=== PATIENT | male | born 1985 | race African-American/Black ===

== ENCOUNTER 2017-08-14 18:26 | Emergency (ER) | payer BC ==
[2017-08-14] MEDS ORDERED: DEXAMETHASONE SOD PHOS INJ 10 MG/1 ML VIAL IM ONE (19:18)
--- NOTE | 2017-08-14 20:00 | ER Document Report ---
ED General - General Chief Complaint: Jaw Pain Stated Complaint: RIGHT SIDE OF FACE PAIN Time Seen by Provider: 08/14/17 18:58 Mode of Arrival: Ambulatory Information source: Patient, Relative Notes: Patient is a 31-year-old morbidly obese black male comes emergency room with a 2 day onset of right-sided facial dysfunction. Patient states that approximately 2 days ago he started nose that he could not lift his eyebrow and that he had difficult time chewing on the right side of his face. He states that he thought he probably popped his jaw out of alignment. Patient also states that there is a doctor in the family who works at another hospital told patient that it was probably Romero's palsy and he should go to the ER just to make sure. Patient denies any other symptoms besides having the inability to lift his eyebrow all the way up on the right side and right sided lip droop. Patient denies any other medical problems. TRAVEL OUTSIDE OF THE [place] IN LAST 30 DAYS: No - HPI Patient complains to provider of: Right-sided facial numbness Onset: Other - 2 days Onset/Duration: Sudden, Gradual, Worse Quality of pain: No pain Severity: Moderate Pain Level: 3 Associated symptoms: None. denies: Allergy/hay fever, Body/muscle aches, Chest pain, Chills, Nonproductive cough, Productive cough, Diarrhea, Drooling, Earache , Fever, Headache, Hoarseness, Hurts to breath, Leg swelling, Nausea, Vomiting, Rhinnorhea, Sinus pain/drainage, Shortness of breath, Slow to respond, Sore throat, Sweating, Weakness, Other Exacerbated by: Denies Relieved by: Denies Similar symptoms previously: No Recently seen / treated by doctor: No - Related Data Allergies/Adverse Reactions: CITRUS Allergy (Uncoded 08/14/17 18:26) Past Medical History - General Information source: Patient, Relative - Social History Smoking Status: Never Smoker Cigarette use (# per day): No Chew tobacco use (# tins/day): No Smoking Education Provided: No Frequency of alcohol use: None Drug Abuse: None Lives with: Family Family History: Reviewed & Not Pertinent Pulmonary Medical History: Reports: Hx Asthma - Childhood Review of Systems - Review of Systems Constitutional: No symptoms reported EENT: Tearing Cardiovascular: No symptoms reported Respiratory: No symptoms reported Gastrointestinal: No symptoms reported Genitourinary: No symptoms reported Male Genitourinary: No symptoms reported Musculoskeletal: No symptoms reported Skin: No symptoms reported Hematologic/Lymphatic: No symptoms reported Neurological/Psychological: Paralysis -: Yes All other systems reviewed and negative Physical Exam - Vital signs Vitals: Temp Pulse Resp BP Pulse Ox 99.8 F 84 20 159/84 H 97 08/14/17 18:36 08/14/17 18:36 08/14/17 18:36 08/14/17 18:36 08/14/17 18:36 Interpretation: Normal, Hypertensive - General General appearance: Appears well, Alert In distress: None - HEENT Head: Normocephalic, Atraumatic, Other - Physical exam the patient's major complaints show that on the right side of his face he is got the ability to move his right eyebrow slightly however in compared to the left is minimal. He can close his eyes completely without any difficulty and has good strength against resistance. He also has a inability to lift the right side of his mouth. Classic presentation of Romero's palsy. Eyes: Tears Conjunctiva: Normal Extraocular movements intact: Yes - Normal Eyelashes: Normal Pupils: PERRL Ears: Normal Tympanic membrane: Normal Hearing loss: Left Sinus: Normal Nasal: Normal Mouth/Lips: Normal Mucous membranes: Normal Pharynx: Normal Neck: Normal - Respiratory Respiratory status: No respiratory distress Chest status: Nontender Breath sounds: Normal Chest palpation: Normal - Cardiovascular Rhythm: Regular Heart sounds: Normal auscultation Murmur: No - Abdominal Inspection: Normal Distension: No distension Bowel sounds: Normal Tenderness: Nontender Organomegaly: No organomegaly - Neurological Neuro grossly intact: Yes Cognition: Normal Orientation: AAOx4 [place]y Coma Scale Eye Opening: Spontaneous [place] Coma Scale Verbal: Oriented [place] Coma Scale Motor: Obeys Commands [place] Coma Scale Total: 15 Speech: Normal Motor strength normal: LUE, RUE, LLE, RLE 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 We did do a CT of the head to cover to make sure we did not have a undetected bleed. Patient is acting exceptionally normal he and his father are very comical. The ER constantly joking around laughing and carrying on. Patient has absolutely no other neuro deficits. Discharge - Discharge Clinical Impression: Romero's palsy Condition: Good Disposition: HOME, SELF-CARE Instructions: Steroid Medication, Romero's Palsy ([facility]) Additional Instructions: Home and rest. Medication as prescribed. As we discussed this is something they can last a day a few weeks a few months or year or more. The treatment is to help shorten the duration and possibly help with the symptoms. 1 of the primary problems with Romero's palsy is sometimes the eyelid does not close all the way. If this should become a problem with you use natural tears eyedrops to keep a moist and at night to sleep you may try a little piece of paper tape to hold the lid down. Highly suggest that you follow-up with your primary care in 24-48 hours for a recheck. Also if you are having difficulty at all return to ER for recheck. As we discussed 1 of the things you must watch out for is your swallowing try to chew all your food carefully and swallow while you thinking about it. If you should have any other increasing symptoms with your walking or your thought process or any other problems return to ER at once for a reexamination. Prescriptions: Acyclovir 800 mg PO 5XD #50 tab Hydrocodone/Acetaminophen [Sidney 7.5-325 Tablet] 1 each PO Q4 #20 tablet Prednisone [Sterapred Ds] 10 mg PO ASDIR PRN #1 tab.ds.pk PRN Reason: Referrals: JOHN LACEY NP [Primary Care Provider] - Follow up as needed
--- NOTE | 2017-08-14 20:28 | RADIOLOGY REPORT (SQ) ---
EXAM DESCRIPTION: CT HEAD WITHOUT COMPLETED DATE/TIME: 08/14/2017 8:16 pm REASON FOR STUDY: Romero's palsy presentation/stroke COMPARISON: None. TECHNIQUE: Axial images acquired through the brain without intravenous contrast. Images reviewed wi th bone, brain and subdural windows. Images stored on PACS. All CT scanners at this facility use dose modulation, iterative reconstruction, and/or weight based d osing when appropriate to reduce radiation dose to as low as reasonably achievable (ALARA). [facility]: Dose Right [facility]: CareDose [facility]: Dose Right [facility]: Teradose 4D [facility]: [employer] RADIATION DOSE: mGy. LIMITATIONS: None. FINDINGS: VENTRICLES: Normal size and contour. CEREBRUM: No masses. No hemorrhage. No midline shift. No evidence for acute infarction. Normal gra y/white matter differentiation. No areas of low density in the white matter. CEREBELLUM: No masses. No hemorrhage. No alteration of density. No evidence for acute infarction. EXTRAAXIAL SPACES: No fluid collections. No masses. ORBITS AND GLOBE: No intra- or extraconal masses. Normal contour of globe without masses. CALVARIUM: No fracture. PARANASAL SINUSES: No fluid or mucosal thickening. SOFT TISSUES: No mass or hematoma. OTHER: No other significant finding. IMPRESSION: No acute findings. EVIDENCE OF ACUTE STROKE: NO. COMMENT: Quality ID # [id number]: Final reports with documentation of one or more dose reduction techniques (e.g., Automated exposure control, adjustment of the mA and/or kV according to patient size, use of iterative reconstruction technique) TECHNICAL DOCUMENTATION: JOB ID: [id number] [place]-72 2010 [employer]- All Rights Reserved
[2017-08-14 21:33] VITALS: BP 137/75
== END 2017-08-14 21:32 | disposition home or self-care (01) ==
LOC: ER 18:26
DX: G51.0 Bell's palsy (principal); E66.01 Morbid (severe) obesity due to excess calories; Z91.018 Allergy to other foods
CPT/HCPCS: 99283; 96372; 70450; J1100

== ENCOUNTER 2018-06-13 21:31 | Emergency (ER) | payer OTHER, BC ==
[2018-06-13] MEDS ORDERED: NORMAL SALINE 1000 ML 1,000 ML IV ONE (23:26)
[2018-06-13] MEDS ORDERED: HYDROMORPHONE HCL INJ/PF 2 MG/ML AMPULE IV ONE (23:26)
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
[2018-06-14 04:06] VITALS: BP 137/97
== END 2018-06-14 04:17 | disposition home or self-care (01) ==
LOC: ER 21:31
DX: M54.2 Cervicalgia (principal); R07.89 Other chest pain; M79.622 Pain in left upper arm; M25.552 Pain in left hip; R51 Headache; M54.6 Pain in thoracic spine; M54.5 Low back pain; M79.652 Pain in left thigh; V59.40XA Driver of pick-up truck or van injured in collision with unspecified motor vehicles in traffic accident, initial encounter; Z91.018 Allergy to other foods
CPT/HCPCS: 99284; 96361; 96374; 70450; 71275; 72125; 72131; J1170; J7030